=== PATIENT | male | born 1955 | race African-American/Black ===

== ENCOUNTER 2017-10-21 10:18 | Inpatient (IN) | payer OTHER ==
[2017-10-21 11:11] VITALS: BMI 32.8
--- NOTE | 2017-10-21 12:44 | HP ---
COWS - Scale Resting Pulse: 1= [place] 81-100 Sweatin=Flushed/Facial Moisture Restless Observation: 1= Difficult to Sit Still Pupil Size: 0= Normal to Room Light Bone or Joint Aches: 1= Mild Discomfort Runny Nose/ Eye Tearin= Nasal Congestion GI Upset > 30mins: 2= Nausea/Diarrhea Tremor Observation: 1= Tremor [place], Not Seen Yawning Observation: 1= 1-2x During Session Anxiety or Irritability: 2=Irritable/Anxious Goose Flesh Skin: 0=Smooth Skin COWS Score: 12 Admission ROS S - HPI Chief Complaint: Heroin withdrawal symptoms. "I am here to detox from heroin." Allergies/Adverse Reactions: Allergies Allergy/AdvReac Type Severity Reaction Status Date / Time No Known Allergies Allergy Verified 10/21/17 12:54 History of Present Illness: 62 yo male with hx heroin and nicotine dependence is here seeking detox for the first time. Currently smokes cigarettes on pack per day. Last detox 2 years ago at [facility]. PMHX: Rheumatoid arthritis, HTN, Hep C, anxiety and depression. Currently ambulates with crutches d/t pending right Hip and left knee replacement. Denies suicidal / homicidal ideation or suicide attempts. Longest period of sobriety 5 years. Exam Limitations: No Limitations - Ebola screening Have you traveled outside of the country in the last 21 days: No Have you had contact with anyone from an Ebola affected area: No Have you been sick,other than usual withdrawal symptoms: No - Review of Systems Constitutional: Loss of Appetite, Changes in sleep, Weakness EENT: reports: See HPI, Nose Congestion Respiratory: reports: Cough Cardiac: reports: No Symptoms Reported GI: reports: Constipated, Poor Appetite, Poor Fluid Intake : reports: No Symptoms Reported Musculoskeletal: reports: Joint Pain Integumentary: reports: No Symptoms Reported Neuro: reports: No Symptoms reported Endocrine: reports: No Symptoms Reported Hematology: reports: No Symptoms Reported Psychiatric: reports: Orientated x3, Agitated, Depressed Other Systems: Reviewed and Negative Patient History - Patient Medical History Hx Anemia: No Hx Asthma: No Hx Chronic Obstructive Pulmonary Disease (COPD): No Hx Cancer: No Hx Cardiac Disorders: No Hx Congestive Heart Failure: No Hx Hypertension: Yes (has not had medications in about 2 years ) Hx Hypercholesterolemia: No Hx Pacemaker: No HX Cerebrovascular Accident: No Hx Seizures: No Hx Dementia: No Hx Diabetes: No Hx Gastrointestinal Disorders: No Hx Liver Disease: Yes (Hep C ) Hx Genitourinary Disorders: No Hx Sexually Transmitted Disorders: Yes (Gonorrhea 25 years ago treated ) Hx Renal Disease (ESRD): No Hx Thyroid Disease: No Hx Human Immunodeficiency Virus (HIV): No (Last tested 3 years ago negative ) Hx Hepatitis C: Yes Hx Depression: Yes Hx Suicide Attempt: No Hx Bipolar Disorder: No Hx Schizophrenia: No Other Medical History: Rheumatoid Arthritis not on medications - Patient Surgical History Past Surgical History: Yes Hx Neurologic Surgery: No Hx Cataract Extraction: No Hx Cardiac Surgery: No Hx Lung Surgery: No Hx Breast Surgery: No Hx Breast Biopsy: No Hx Abdominal Surgery: No Hx Appendectomy: No Hx Cholecystectomy: No Hx Genitourinary Surgery: No Hx Orthopedic Surgery: Yes (Right replacement 20 years ago ) Anesthesia Reaction: No - PPD History Previous Implant?: Yes Documented Results: Negative w/proof PPD to be Administered?: Yes - Reproductive History Patient is a Female of Child Bearing Age (11 -55 yrs old): No - Smoking Cessation Smoking history: Current every day smoker Have you smoked in the past 12 months: Yes Hx Chewing Tobacco Use: No Initiated information on smoking cessation: Yes 'Breaking Loose' booklet given: 10/21/17 - Substance & Tx. History Hx Alcohol Use: No Hx Substance Use: Yes Substance Use Type: Heroin Hx Substance Use Treatment: Yes ([facility] 2 years ago ) - Substances Abused Heroin Route: Inhalation Frequency: Daily Amount used: 7 bags Age of first use: 22 Date of Last Use: 10/21/17 Family Disease History - Family Disease History Family Disease History: Heart Disease: Mother (, [place] ), Other: Father ( alive, HTN ), Mother Admission Physical Exam BHS - Vital Signs Vital Signs: Vital Signs - 24 hr 10/21/17 11:10 Temperature 98.6 F Pulse Rate 88 Respiratory 20 Rate Blood Pressure 157/117 - Physical General Appearance: Yes: No Apparent Distress, Disheveled, Irritable, Anxious, Other (malodorous) HEENTM: Yes: EOMI, Hearing grossly Normal, Normal ENT Inspection, Normocephalic , Normal Voice, ZITA, Pharynx Normal, Tm's normal, Other (poor dentation) Respiratory: Yes: Chest Non-Tender, Lungs Clear, Normal Breath Sounds, No Respiratory Distress, No Accessory Muscle Use Neck: Yes: Within Normal Limits, No masses,lesions,Nodules Breast: Yes: Breast Exam Deferred Cardiology: Yes: Regular Rhythm, Regular Rate Abdominal: Yes: Normal Bowel Sounds, Non Tender, Soft, Protuberent Genitourinary: Yes: Within Normal Limits Back: Yes: Normal Inspection Musculoskeletal: Yes: full range of Motion, Joint Stiffness, Other (joint deformity on the right middle finger, gait unsteady, ambulates with a crutch) Extremities: Yes: Normal Capillary Refill, Normal Range of Motion, Non-Tender, Pedal Edema Neurological: Yes: forecast analyst II-XII NML intact, Fully Oriented, Motor Strength 5/5, Normal Response, Depressed Affect Integumentary: Yes: Normal Color, Dry, Warm Lymphatic: Yes: Within Normal Limits - Addiitonal Findings: [employer]: Reference #: [id number]. No controlled substances prescribe. - Diagnostic (1) HTN (hypertension) Current Visit: Yes Status: Chronic Qualifiers: Hypertension type: essential hypertension Qualified Code(s): I10 - Essential (primary) hypertension (2) Rheumatoid arthritis Current Visit: Yes Status: Chronic Qualifiers: Rheumatoid arthritis location: multiple sites (3) Opioid dependence with withdrawal Current Visit: Yes Status: Acute (4) Chronic pain Current Visit: Yes Status: Chronic (5) Poor compliance with medication Current Visit: Yes Status: Chronic (6) Depressed affect Current Visit: Yes Status: Acute (7) Difficulty sleeping Current Visit: Yes Status: Acute (8) Crutches as ambulation aid Current Visit: Yes Status: Chronic (9) Nicotine dependence Current Visit: Yes Status: Chronic Qualifiers: Nicotine product type: cigarettes (10) Hepatitis C Current Visit: Yes Status: Chronic Qualifiers: Viral hepatitis chronicity: unspecified (11) Obese Current Visit: Yes Status: Chronic Qualifiers: Obesity classification: adult class 1 (BMI 30 - 34.9) Body mass index: BMI 32.0-32.9 Cleared for Admission [facility] - Detox or Rehab [facility] Level of Care: Medically Managed Detox Regimen/Protocol: Methadone [facility] Breath Alcohol Content Breath Alcohol Content: 0 Urine Drug Screen - Results Drug Screen Negative: No Urine Drug Screen Results: THC-Marijuana, OPI-Opiates, MTD-Methadone, OXY- Oxycodone
[2017-10-21] MEDS ORDERED: MENTHOL/PHENOL 1 EACH UD MM PRN (13:32)
[2017-10-21] MEDS ORDERED: MAG HYDROX/AL HYDROX/SIMETH 30 ML UNIT-DOSE CUP PO PRN (13:32)
[2017-10-21] MEDS ORDERED: MAGNESIUM HYDROX 2400MG/30ML ORAL SUSPENSION 30 ML CUP PO PRN (13:32)
[2017-10-21] MEDS ORDERED: IBUPROFEN 400 MG TABLET (FP) PO PRN (13:32)
[2017-10-21] MEDS ORDERED: P-EPHED 60MG/TRIPROLIDI 2.5MG TABLET PO PRN (13:32)
[2017-10-21] MEDS ORDERED: ACETAMINOPHEN 325 MG TABLET (FP) PO PRN (13:32)
[2017-10-21] MEDS ORDERED: LOPERAMIDE HCL 2 MG CAPSULE PO PRN (13:32)
[2017-10-21] MEDS ORDERED: MAGNESIUM CITRATE 300 ML BOTTLE PO PRN (13:32)
[2017-10-21] MEDS ORDERED: guaiFENesin/D-METHORPHAN HB 10 ML UNIT-DOSE CUPS PO PRN (13:32)
[2017-10-21] MEDS ORDERED: METHADONE HCL 10 MG TABLET (FOR DETOX USE ONLY) PO ONE ×2 (15:00→23:00)
[2017-10-21] MEDS: diazePAM 5 MG TABLET PO PRN ×2 (15:54→21:53)
[2017-10-21] MEDS: amLODIPine BESYLATE 10 MG TABLET (FP) PO SCH (15:54)
--- NOTE | 2017-10-21 17:30 | CONSULT ---
[facility] Psychiatric Consult - Data Date of interview: 10/21/17 Admission source: [facility] Identifying data: First admission to [facility] for this 62 y/o AA male seeking detox treatment on for heroin dependence.Patient is single,a father of seven,homeless,unemployed (disabled) and supported on SSI benefits. Substance Abuse History: Discussed with patient in this interview.Patient admits to current use of heroin (snorting an average of 7 bags/day).Long standing history of abuse (since age 22). Details in current [facility] report : Smoking history: Current every day smoker. Have you smoked in the past 12 months: Yes. Hx Chewing Tobacco Use: No. Initiated information on smoking cessation: Yes. 'Breaking Loose' booklet given: 10/21/17. - Substance & Tx. History. Hx Alcohol Use: No. Hx Substance Use: Yes. Substance Use Type: Heroin. Hx Substance Use Treatment: Yes ([facility] 2 years ago ). - Substances Abused. Heroin. Route: Inhalation. Frequency: Daily. Amount used: 7 bags. Age of first use: 22. Date of Last Use: 10/21/17 Medical History: Hypertension,hepatitis C,distant history of right hip replacement,rheumatoid arthritis and past treatment for gonorrhea. Psychiatric History: Patient denies. Physical/Sexual Abuse/Trauma History: Patient denies. Additional Comment: Urine Drug Screen Results: THC-Marijuana, OPI-Opiates, MTD- Methadone, OXY-Oxycodone.Noted. Mental Status Exam - Mental Status Exam Alert and Oriented to: Time, Place, Person Cognitive Function: Good Patient Appearance: Well Groomed (obese,moving around with crutches) Mood: Withdrawn, Anxious Affect: Mood Congruent Patient Behavior: Fatigued, Appropriate, Cooperative Speech Pattern: Clear, Appropriate Voice Loudness: Normal Thought Process: Intact, Goal Oriented Thought Disorder: Not Present Hallucinations: Denies Suicidal Ideation: Denies Homicidal Ideation: Denies Insight/Judgement: Poor Sleep: Fair Appetite: Good Gait/Station: Other (uses crutches for ambulation) Psychiatric Findings - Problem List ([place] 1, 2,3) (1) Opioid dependence with withdrawal Current Visit: Yes Status: Acute (2) Nicotine dependence Current Visit: Yes Status: Chronic Qualifiers: Nicotine product type: cigarettes - Initial Treatment Plan Initial Treatment Plan: Psychoeducation.Detoxification initiated.Sleep hygiene.Falls precautions.Observation.
[2017-10-21 18:59] LABS: URINE APPEARANCE CLEAR; URINE BILIRUBIN NEGATIVE (NEGATIVE); URINE BLOOD NEGATIVE (NEGATIVE); URINE COLOR YELLOW; URINE GLUCOSE (UA) NEGATIVE (NEGATIVE); URINE KETONE NEGATIVE (NEGATIVE); URINE LEUK ESTERASE NEGATIVE (NEGATIVE); URINE NITRITE NEGATIVE (NEGATIVE); URINE PROTEIN NEGATIVE (NEGATIVE)
[2017-10-21] MEDS: THIAMINE HCL 100 MG TABLET (FP) PO SCH (21:53)
[2017-10-22] MEDS ORDERED: METHADONE HCL 10 MG TABLET (FOR DETOX USE ONLY) PO ONE (10:00)
[2017-10-22 10:33] LABS: HEMATOCRIT 45.8 % (35.4-49); HEMOGLOBIN 15.6 GM/dL (11.7-16.9); MCH 30.5 pg (25.7-33.7); MCHC 34.2 g/dl (32.0-35.9); MEAN CELL VOLUME 89.2 fl (80-96); MEAN PLT VOLUME 8.5 fl (7.5-11.1); PLATELET COUNT 236 K/MM3 (134-434); RBC 5.13 M/mm3 (4.00-5.60); RDW 13.9 % (11.9-15.9); WHITE BLOOD COUNT 11.1 K/mm3 (4.0-10.0)
[2017-10-22] MEDS: diazePAM 5 MG TABLET PO PRN ×2 (10:37→22:26)
[2017-10-22] MEDS: amLODIPine BESYLATE 10 MG TABLET (FP) PO SCH (10:37)
[2017-10-22] MEDS: NICOTINE 14 MG/24 HOURS TOPICAL PATCH TD SCH (10:38)
[2017-10-22] MEDS: PRENATAL VITAMINS W/ FOLIC ACID TABLET (FP) PO SCH (10:38)
[2017-10-22 10:46] LABS: CHLORIDE 103 mmol/L (98-107); POTASSIUM 3.6 mmol/L (3.5-5.1); SODIUM 138 mmol/L (136-145)
[2017-10-22 11:05] LABS: ALBUMIN 3.7 g/dl (3.4-5.0); ALK PHOS 179 U/L (45-117); ANION GAP 9 (8-16); BILIRUBIN,TOTAL 0.8 mg/dL (0.2-1.0); BLOOD UREA NITROGEN 15 mg/dL (7-18); CALCIUM 8.3 mg/dL (8.5-10.1); CO2 26 mmol/L (21-32); CREATININE 1.2 mg/dL (0.7-1.3); GLUCOSE,RANDOM 134 mg/dL (74-106); SGOT/AST 36 U/L (15-37); SGPT/ALT 39 U/L (12-78); TOT PROT 8.5 g/dl (6.4-8.2)
[2017-10-22] MEDS ORDERED: FLU VACCINE QUAD 60 MCG/0.5 ML (MDV 17-18) IM ONE (12:00)
--- NOTE | 2017-10-22 18:06 | PN ---
BHS COWS - Scale Resting Pulse: 1= [place] 81-100 Sweatin= Chills/Flushing Restless Observation: 1= Difficult to Sit Still Pupil Size: 0= Normal to Room Light Bone or Joint Aches: 2= Severe Diffuse Aches Runny Nose/ Eye Tearin= Nasal Congestion GI Upset > 30mins: 0= None Tremor Observation of Outstretched Hands: 0= None Yawning Observation: 2= >3x During Session Anxiety or Irritability: 2=Irritable/Anxious Goose Flesh Skin: 3=Piloerection COWS Score: 13 BHS Progress Note (SOAP) Subjective: Fatigue, Sweating, Body Aches. Objective: PATIENT A & O X 3. NO ACUTE DISTRESS. 10/22/17 18:03 Vital Signs Temperature 98.6 F 10/22/17 18:02 Pulse Rate 85 10/22/17 18:02 Respiratory Rate 18 10/22/17 18:02 Blood Pressure 128/80 10/22/17 18:02 O2 Sat by Pulse Oximetry (%) Laboratory Tests 10/21/17 10/21/17 10/22/17 15:00 Unknown 06:00 WBC 11.1 H RBC 5.13 Hgb 15.6 Hct 45.8 MCV 89.2 MCH 30.5 MCHC 34.2 RDW 13.9 Plt Count 236 MPV 8.5 Sodium Potassium Chloride Carbon Dioxide Anion Gap BUN Creatinine Creat Clearance w eGFR Random Glucose Calcium Total Bilirubin AST ALT Alkaline Phosphatase Total Protein Albumin Urine Color Yellow Urine Appearance Clear Urine pH 5.0 Ur Specific [place] 1.015 Urine Protein Negative Urine Glucose (UA) Negative Urine Ketones Negative Urine Blood Negative Urine Nitrite Negative Urine Bilirubin Negative Urine Urobilinogen 2.0 Ur Leukocyte Esterase Negative RPR Titer HIV 1&2 Antibody Screen Negative HIV P24 Antigen Negative 10/22/17 10/22/17 06:00 06:00 WBC RBC Hgb Hct MCV MCH MCHC RDW Plt Count MPV Sodium 138 Potassium 3.6 Chloride 103 Carbon Dioxide 26 Anion Gap 9 BUN 15 Creatinine 1.2 Creat Clearance w eGFR > 60 Random Glucose 134 H Calcium 8.3 L Total Bilirubin 0.8 AST 36 ALT 39 Alkaline Phosphatase 179 H Total Protein 8.5 H Albumin 3.7 Urine Color Urine Appearance Urine pH Ur Specific [place] Urine Protein Urine Glucose (UA) Urine Ketones Urine Blood Urine Nitrite Urine Bilirubin Urine Urobilinogen Ur Leukocyte Esterase RPR Titer Nonreactive HIV 1&2 Antibody Screen HIV P24 Antigen LABS NOTED. Assessment: 10/22/17 18:04 WITHDRAWAL SYMPTOMS. Plan: CONTINUE DETOX. BGM ACBK FOR ELEVATED ADMISSION RANDOM GLUCOSE LEVEL. INCREASE DAILY PO FLUID INTAKE.
[2017-10-22] MEDS: THIAMINE HCL 100 MG TABLET (FP) PO SCH (22:26)
[2017-10-22] MEDS: cloNIDine HCL 0.1 MG TABLET PO PRN (22:27)
[2017-10-23] MEDS: hydrOXYzine PAMOATE 50 MG CAPSULE (FP) PO PRN ×2 (01:17→22:22)
[2017-10-23] MEDS ORDERED: METHADONE HCL 5 MG TABLET (FOR DETOX USE ONLY) PO ONE (10:00)
[2017-10-23] MEDS: PRENATAL VITAMINS W/ FOLIC ACID TABLET (FP) PO SCH (10:24)
[2017-10-23] MEDS: amLODIPine BESYLATE 10 MG TABLET (FP) PO SCH (10:24)
[2017-10-23] MEDS: diazePAM 5 MG TABLET PO PRN ×2 (10:24→22:21)
[2017-10-23] MEDS: NICOTINE 14 MG/24 HOURS TOPICAL PATCH TD SCH (10:25)
--- NOTE | 2017-10-23 16:35 | PN ---
BHS COWS - Scale Resting Pulse: 0= TN 80 or Below Sweatin= Chills/Flushing Restless Observation: 3= Extraneous Movement Pupil Size: 0= Normal to Room Light Bone or Joint Aches: 2= Severe Diffuse Aches Runny Nose/ Eye Tearin= Runny Nose/Eyes GI Upset > 30mins: 2= Nausea/Diarrhea Tremor Observation of Outstretched Hands: 2= Slight Tremor Visible Yawning Observation: 0= None Anxiety or Irritability: 2=Irritable/Anxious Goose Flesh Skin: 0=Smooth Skin COWS Score: 14 BHS Progress Note (SOAP) Subjective: Sweating, chills, tremor, nausea, interrupted sleep Objective: 10/23/17 16:32 Last Vital Signs Temp Pulse Resp BP Pulse Ox 97 F L 63 18 154/91 10/23/17 14:22 10/23/17 14:22 10/23/17 14:22 10/23/17 14:22 Laboratory Tests 10/21/17 10/21/17 10/22/17 15:00 Unknown 06:00 WBC 11.1 H RBC 5.13 Hgb 15.6 Hct 45.8 MCV 89.2 MCH 30.5 MCHC 34.2 RDW 13.9 Plt Count 236 MPV 8.5 Sodium Potassium Chloride Carbon Dioxide Anion Gap BUN Creatinine Creat Clearance w eGFR POC Glucometer Random Glucose Calcium Total Bilirubin AST ALT Alkaline Phosphatase Total Protein Albumin Urine Color Yellow Urine Appearance Clear Urine pH 5.0 Ur Specific [place] 1.015 Urine Protein Negative Urine Glucose (UA) Negative Urine Ketones Negative Urine Blood Negative Urine Nitrite Negative Urine Bilirubin Negative Urine Urobilinogen 2.0 Ur Leukocyte Esterase Negative RPR Titer HIV 1&2 Antibody Screen Negative HIV P24 Antigen Negative 10/22/17 10/22/17 10/23/17 06:00 06:00 07:30 WBC RBC Hgb Hct MCV MCH MCHC RDW Plt Count MPV Sodium 138 Potassium 3.6 Chloride 103 Carbon Dioxide 26 Anion Gap 9 BUN 15 Creatinine 1.2 Creat Clearance w eGFR > 60 POC Glucometer 195 Random Glucose 134 H Calcium 8.3 L Total Bilirubin 0.8 AST 36 ALT 39 Alkaline Phosphatase 179 H Total Protein 8.5 H Albumin 3.7 Urine Color Urine Appearance Urine pH Ur Specific [place] Urine Protein Urine Glucose (UA) Urine Ketones Urine Blood Urine Nitrite Urine Bilirubin Urine Urobilinogen Ur Leukocyte Esterase RPR Titer Nonreactive HIV 1&2 Antibody Screen HIV P24 Antigen Labs noted: wbc 11.1 Assessment: 10/23/17 16:33 Withdrawal symptoms Noted with leukocytosis Plan: Withdrawal symptoms Encouraged PO hydration (water) Leukocytosis: asymptomatic, repeat CBC
--- NOTE | 2017-10-23 20:38 | EKG ---
Test Reason : Blood Pressure : / mmHG Vent. Rate : 078 BPM Atrial Rate : 078 BPM P-R Int : 172 ms QRS Dur : 090 ms QT Int : 408 ms P-R-T Axes : 061 081 051 degrees QTc Int : 465 ms NORMAL SINUS RHYTHM POSSIBLE LEFT ATRIAL ENLARGEMENT BORDERLINE ECG NO PREVIOUS ECGS AVAILABLE Confirmed by ALANA COSTELLO, EMMANUELLE ([id number]) on 10/23/2017 8:38:42 PM Referred By: Confirmed By:EMMANUELLE WARNER MD
[2017-10-23] MEDS: THIAMINE HCL 100 MG TABLET (FP) PO SCH (22:21)
[2017-10-23] MEDS: cloNIDine HCL 0.1 MG TABLET PO PRN (22:21)
[2017-10-24] MEDS: diazePAM 5 MG TABLET PO PRN ×2 (06:12→10:42)
[2017-10-24] MEDS ORDERED: METHADONE HCL 5 MG TABLET (FOR DETOX USE ONLY) PO ONE (10:00)
[2017-10-24] MEDS: PRENATAL VITAMINS W/ FOLIC ACID TABLET (FP) PO SCH (10:42)
[2017-10-24] MEDS: NICOTINE 14 MG/24 HOURS TOPICAL PATCH TD SCH (10:42)
[2017-10-24] MEDS: amLODIPine BESYLATE 10 MG TABLET (FP) PO SCH (10:42)
[2017-10-24] MEDS: NICOTINE POLACRILEX 2 MG GUM BUC PRN (10:43)
--- NOTE | 2017-10-24 11:50 | PN ---
BHS Progress Note (SOAP) Subjective: PT STATES HE TAKES TRAZODONE AND AMBIEN NOT EFFECTIVE. Objective: 10/24/17 12:04 Vital Signs Temperature 97.1 F L 10/24/17 06:47 Pulse Rate 57 L 10/24/17 06:47 Respiratory Rate 18 10/24/17 06:47 Blood Pressure 143/89 10/24/17 06:47 O2 Sat by Pulse Oximetry (%) Laboratory Last Values WBC 11.1 K/mm3 (4.0-10.0) H 10/22/17 06:00 RBC 5.13 M/mm3 (4.00-5.60) 10/22/17 06:00 Hgb 15.6 GM/dL (11.7-16.9) 10/22/17 06:00 Hct 45.8 % (35.4-49) 10/22/17 06:00 MCV 89.2 fl (80-96) 10/22/17 06:00 MCH 30.5 pg (25.7-33.7) 10/22/17 06:00 MCHC 34.2 g/dl (32.0-35.9) 10/22/17 06:00 RDW 13.9 % (11.9-15.9) 10/22/17 06:00 Plt Count 236 K/MM3 (134-434) 10/22/17 06:00 MPV 8.5 fl (7.5-11.1) 10/22/17 06:00 Sodium 138 mmol/L (136-145) 10/22/17 06:00 Potassium 3.6 mmol/L (3.5-5.1) 10/22/17 06:00 Chloride 103 mmol/L (98-107) 10/22/17 06:00 Carbon Dioxide 26 mmol/L (21-32) 10/22/17 06:00 Anion Gap 9 (8-16) 10/22/17 06:00 BUN 15 mg/dL (7-18) 10/22/17 06:00 Creatinine 1.2 mg/dL (0.7-1.3) 10/22/17 06:00 Creat Clearance w eGFR > 60 (>60) 10/22/17 06:00 POC Glucometer 126 UNITS (80-120) 10/24/17 06:12 Random Glucose 134 mg/dL (74-106) H 10/22/17 06:00 Calcium 8.3 mg/dL (8.5-10.1) L 10/22/17 06:00 Total Bilirubin 0.8 mg/dL (0.2-1.0) 10/22/17 06:00 AST 36 U/L (15-37) 10/22/17 06:00 ALT 39 U/L (12-78) 10/22/17 06:00 Alkaline Phosphatase 179 U/L (45-117) H 10/22/17 06:00 Total Protein 8.5 g/dl (6.4-8.2) H 10/22/17 06:00 Albumin 3.7 g/dl (3.4-5.0) 10/22/17 06:00 Urine Color Yellow 10/21/17 Unknown Urine Appearance Clear 10/21/17 Unknown Urine pH 5.0 (5.0-8.0) 10/21/17 Unknown Ur Specific [place] 1.015 (1.001-1.035) 10/21/17 Unknown Urine Protein Negative (NEGATIVE) 10/21/17 Unknown Urine Glucose (UA) Negative (NEGATIVE) 10/21/17 Unknown Urine Ketones Negative (NEGATIVE) 10/21/17 Unknown Urine Blood Negative (NEGATIVE) 10/21/17 Unknown Urine Nitrite Negative (NEGATIVE) 10/21/17 Unknown Urine Bilirubin Negative (NEGATIVE) 10/21/17 Unknown Urine Urobilinogen 2.0 mg/dL (0.2-1.0) 10/21/17 Unknown Ur Leukocyte Esterase Negative (NEGATIVE) 10/21/17 Unknown RPR Titer Nonreactive (NONREACTIVE) 10/22/17 06:00 HIV 1&2 Antibody Screen Negative 10/21/17 15:00 HIV P24 Antigen Negative 10/21/17 15:00 Assessment: 10/24/17 12:04 WITHDRAWAL SX HX INSOMNIA Plan: CONTINUE WITH DETOX FOLLOW UP WITH PSYCH FOR INSOMNIA WORK UP.
[2017-10-24] MEDS: THIAMINE HCL 100 MG TABLET (FP) PO SCH (22:09)
[2017-10-24] MEDS: cloNIDine HCL 0.1 MG TABLET PO SCH (22:09)
[2017-10-24] MEDS: hydrOXYzine PAMOATE 50 MG CAPSULE (FP) PO PRN (22:11)
[2017-10-25] MEDS ORDERED: METHADONE HCL 10 MG TABLET (FOR DETOX USE ONLY) PO ONE (10:00)
[2017-10-25] MEDS: cloNIDine HCL 0.1 MG TABLET PO SCH ×2 (10:25→22:07)
[2017-10-25] MEDS: PRENATAL VITAMINS W/ FOLIC ACID TABLET (FP) PO SCH (10:25)
[2017-10-25] MEDS: NICOTINE 14 MG/24 HOURS TOPICAL PATCH TD SCH (10:25)
[2017-10-25] MEDS: amLODIPine BESYLATE 10 MG TABLET (FP) PO SCH (10:25)
--- NOTE | 2017-10-25 11:29 | PN ---
BHS Progress Note (SOAP) Subjective: SLIGHT ANXIETY,SWEATS. OOB ON HALLWAYS AMBULATING WITH CANE. DETOX PROTOCOL TOLERATING WELL Objective: 10/25/17 11:31 Vital Signs Temperature 97.5 F L 10/25/17 10:19 Pulse Rate 68 10/25/17 10:19 Respiratory Rate 18 10/25/17 10:19 Blood Pressure 138/82 10/25/17 10:19 O2 Sat by Pulse Oximetry (%) Laboratory Last Values WBC 11.1 K/mm3 (4.0-10.0) H 10/22/17 06:00 RBC 5.13 M/mm3 (4.00-5.60) 10/22/17 06:00 Hgb 15.6 GM/dL (11.7-16.9) 10/22/17 06:00 Hct 45.8 % (35.4-49) 10/22/17 06:00 MCV 89.2 fl (80-96) 10/22/17 06:00 MCH 30.5 pg (25.7-33.7) 10/22/17 06:00 MCHC 34.2 g/dl (32.0-35.9) 10/22/17 06:00 RDW 13.9 % (11.9-15.9) 10/22/17 06:00 Plt Count 236 K/MM3 (134-434) 10/22/17 06:00 MPV 8.5 fl (7.5-11.1) 10/22/17 06:00 Sodium 138 mmol/L (136-145) 10/22/17 06:00 Potassium 3.6 mmol/L (3.5-5.1) 10/22/17 06:00 Chloride 103 mmol/L (98-107) 10/22/17 06:00 Carbon Dioxide 26 mmol/L (21-32) 10/22/17 06:00 Anion Gap 9 (8-16) 10/22/17 06:00 BUN 15 mg/dL (7-18) 10/22/17 06:00 Creatinine 1.2 mg/dL (0.7-1.3) 10/22/17 06:00 Creat Clearance w eGFR > 60 (>60) 10/22/17 06:00 POC Glucometer 109 UNITS (80-120) 10/25/17 06:39 Random Glucose 134 mg/dL (74-106) H 10/22/17 06:00 Calcium 8.3 mg/dL (8.5-10.1) L 10/22/17 06:00 Total Bilirubin 0.8 mg/dL (0.2-1.0) 10/22/17 06:00 AST 36 U/L (15-37) 10/22/17 06:00 ALT 39 U/L (12-78) 10/22/17 06:00 Alkaline Phosphatase 179 U/L (45-117) H 10/22/17 06:00 Total Protein 8.5 g/dl (6.4-8.2) H 10/22/17 06:00 Albumin 3.7 g/dl (3.4-5.0) 10/22/17 06:00 Urine Color Yellow 10/21/17 Unknown Urine Appearance Clear 10/21/17 Unknown Urine pH 5.0 (5.0-8.0) 10/21/17 Unknown Ur Specific [place] 1.015 (1.001-1.035) 10/21/17 Unknown Urine Protein Negative (NEGATIVE) 10/21/17 Unknown Urine Glucose (UA) Negative (NEGATIVE) 10/21/17 Unknown Urine Ketones Negative (NEGATIVE) 10/21/17 Unknown Urine Blood Negative (NEGATIVE) 10/21/17 Unknown Urine Nitrite Negative (NEGATIVE) 10/21/17 Unknown Urine Bilirubin Negative (NEGATIVE) 10/21/17 Unknown Urine Urobilinogen 2.0 mg/dL (0.2-1.0) 10/21/17 Unknown Ur Leukocyte Esterase Negative (NEGATIVE) 10/21/17 Unknown RPR Titer Nonreactive (NONREACTIVE) 10/22/17 06:00 HIV 1&2 Antibody Screen Negative 10/21/17 15:00 HIV P24 Antigen Negative 10/21/17 15:00 Assessment: 10/25/17 11:31 WITHDRAWAL SX Plan: CONTINUE DETOX
[2017-10-25] MEDS: THIAMINE HCL 100 MG TABLET (FP) PO SCH (22:07)
[2017-10-25] MEDS: hydrOXYzine PAMOATE 50 MG CAPSULE (FP) PO PRN (22:09)
[2017-10-26] MEDS ORDERED: METHADONE HCL 5 MG TABLET (FOR DETOX USE ONLY) PO ONE (06:00)
[2017-10-26] MEDS: NICOTINE POLACRILEX 2 MG GUM BUC PRN ×2 (06:38→10:50)
[2017-10-26] MEDS: amLODIPine BESYLATE 10 MG TABLET (FP) PO SCH (10:48)
[2017-10-26] MEDS: PRENATAL VITAMINS W/ FOLIC ACID TABLET (FP) PO SCH (10:48)
[2017-10-26] MEDS: cloNIDine HCL 0.1 MG TABLET PO SCH (10:48)
[2017-10-26] MEDS: NICOTINE 14 MG/24 HOURS TOPICAL PATCH TD SCH (10:49)
[2017-10-26 10:53] VITALS: BP 166/89; PULSE 66; TEMP 97.2
--- NOTE | 2017-10-26 11:01 | PN ---
S Progress Note (SOAP) Subjective: Patient reports that he is doing well and denies any current Detox symptoms. Objective: PATIENT A & O X 3, OBSERVED AMBULATING ON UNIT WITH ASSISTANCE OF A CRUTCH. 10/26/17 10:59 Vital Signs Temperature 97.2 F L 10/26/17 10:52 Pulse Rate 66 10/26/17 10:52 Respiratory Rate 18 10/26/17 10:52 Blood Pressure 166/89 10/26/17 10:52 O2 Sat by Pulse Oximetry (%) Laboratory Tests 10/21/17 10/21/17 10/22/17 15:00 Unknown 06:00 WBC 11.1 H RBC 5.13 Hgb 15.6 Hct 45.8 MCV 89.2 MCH 30.5 MCHC 34.2 RDW 13.9 Plt Count 236 MPV 8.5 Sodium Potassium Chloride Carbon Dioxide Anion Gap BUN Creatinine Creat Clearance w eGFR POC Glucometer Random Glucose Calcium Total Bilirubin AST ALT Alkaline Phosphatase Total Protein Albumin Urine Color Yellow Urine Appearance Clear Urine pH 5.0 Ur Specific [place] 1.015 Urine Protein Negative Urine Glucose (UA) Negative Urine Ketones Negative Urine Blood Negative Urine Nitrite Negative Urine Bilirubin Negative Urine Urobilinogen 2.0 Ur Leukocyte Esterase Negative RPR Titer HIV 1&2 Antibody Screen Negative HIV P24 Antigen Negative 10/22/17 10/22/17 10/23/17 06:00 06:00 07:30 WBC RBC Hgb Hct MCV MCH MCHC RDW Plt Count MPV Sodium 138 Potassium 3.6 Chloride 103 Carbon Dioxide 26 Anion Gap 9 BUN 15 Creatinine 1.2 Creat Clearance w eGFR > 60 POC Glucometer 195 Random Glucose 134 H Calcium 8.3 L Total Bilirubin 0.8 AST 36 ALT 39 Alkaline Phosphatase 179 H Total Protein 8.5 H Albumin 3.7 Urine Color Urine Appearance Urine pH Ur Specific [place] Urine Protein Urine Glucose (UA) Urine Ketones Urine Blood Urine Nitrite Urine Bilirubin Urine Urobilinogen Ur Leukocyte Esterase RPR Titer Nonreactive HIV 1&2 Antibody Screen HIV P24 Antigen 10/24/17 10/25/17 10/26/17 06:12 06:39 06:28 WBC RBC Hgb Hct MCV MCH MCHC RDW Plt Count MPV Sodium Potassium Chloride Carbon Dioxide Anion Gap BUN Creatinine Creat Clearance w eGFR POC Glucometer 126 109 106 Random Glucose Calcium Total Bilirubin AST ALT Alkaline Phosphatase Total Protein Albumin Urine Color Urine Appearance Urine pH Ur Specific [place] Urine Protein Urine Glucose (UA) Urine Ketones Urine Blood Urine Nitrite Urine Bilirubin Urine Urobilinogen Ur Leukocyte Esterase RPR Titer HIV 1&2 Antibody Screen HIV P24 Antigen LABS NOTED. Assessment: 10/26/17 11:00 COMPLETION OF DETOX REGIMEN. Plan: PATIENT SCHEDULED FOR DISCHARGE TODAY. [facility]
--- NOTE | 2017-10-26 11:05 | DS ---
[facility] Detox Discharge Summary Admission Date: 10/21/17 Discharge Date: 10/26/17 - History Present History: Opioid Dependence Additional Comments: [facility] PATIENT WAS DISCHARGE FROM DETOX UNIT IN STABLE MEDICAL CONDITION. Pertinent Past History: Hep C, Depresssion, Nicotine Dependence, HTN, Use of Crutch as Ambulatory Aid, Chronic Pain, Rheumatoid Arthritis. - Physical Exam Results Vital Signs: Vital Signs Temperature 97.2 F L 10/26/17 10:52 Pulse Rate 66 10/26/17 10:52 Respiratory Rate 18 10/26/17 10:52 Blood Pressure 166/89 10/26/17 10:52 O2 Sat by Pulse Oximetry (%) Pertinent Admission Physical Exam Findings: WITHDRAWAL SYMPTOMS. Laboratory Tests 10/21/17 10/21/17 10/22/17 15:00 Unknown 06:00 WBC 11.1 H RBC 5.13 Hgb 15.6 Hct 45.8 MCV 89.2 MCH 30.5 MCHC 34.2 RDW 13.9 Plt Count 236 MPV 8.5 Sodium Potassium Chloride Carbon Dioxide Anion Gap BUN Creatinine Creat Clearance w eGFR POC Glucometer Random Glucose Calcium Total Bilirubin AST ALT Alkaline Phosphatase Total Protein Albumin Urine Color Yellow Urine Appearance Clear Urine pH 5.0 Ur Specific Mangham 1.015 Urine Protein Negative Urine Glucose (UA) Negative Urine Ketones Negative Urine Blood Negative Urine Nitrite Negative Urine Bilirubin Negative Urine Urobilinogen 2.0 Ur Leukocyte Esterase Negative RPR Titer HIV 1&2 Antibody Screen Negative HIV P24 Antigen Negative 10/22/17 10/22/17 10/23/17 06:00 06:00 07:30 WBC RBC Hgb Hct MCV MCH MCHC RDW Plt Count MPV Sodium 138 Potassium 3.6 Chloride 103 Carbon Dioxide 26 Anion Gap 9 BUN 15 Creatinine 1.2 Creat Clearance w eGFR > 60 POC Glucometer 195 Random Glucose 134 H Calcium 8.3 L Total Bilirubin 0.8 AST 36 ALT 39 Alkaline Phosphatase 179 H Total Protein 8.5 H Albumin 3.7 Urine Color Urine Appearance Urine pH Ur Specific Mangham Urine Protein Urine Glucose (UA) Urine Ketones Urine Blood Urine Nitrite Urine Bilirubin Urine Urobilinogen Ur Leukocyte Esterase RPR Titer Nonreactive HIV 1&2 Antibody Screen HIV P24 Antigen 10/24/17 10/25/17 10/26/17 06:12 06:39 06:28 WBC RBC Hgb Hct MCV MCH MCHC RDW Plt Count MPV Sodium Potassium Chloride Carbon Dioxide Anion Gap BUN Creatinine Creat Clearance w eGFR POC Glucometer 126 109 106 Random Glucose Calcium Total Bilirubin AST ALT Alkaline Phosphatase Total Protein Albumin Urine Color Urine Appearance Urine pH Ur Specific Mangham Urine Protein Urine Glucose (UA) Urine Ketones Urine Blood Urine Nitrite Urine Bilirubin Urine Urobilinogen Ur Leukocyte Esterase RPR Titer HIV 1&2 Antibody Screen HIV P24 Antigen LABS NOTED. - Treatment Hospital Course: Detox Protocol Followed, Detoxed Safely, Responded well, Discharged Condition Good, Rehab Referral Accepted Patient has Accepted a Rehab Referral to: [facility] ([facility] . - Medication Discharge Medications: Ambulatory Orders NK [No Known Home Medication] 10/21/17 - Diagnosis (1) Difficulty sleeping Current Visit: Yes Status: Acute (2) Opioid dependence with withdrawal Current Visit: Yes Status: Acute (3) Crutches as ambulation aid Current Visit: Yes Status: Chronic (4) HTN (hypertension) Current Visit: Yes Status: Chronic Qualifiers: Hypertension type: essential hypertension Qualified Code(s): I10 - Essential (primary) hypertension (5) Hepatitis C Current Visit: Yes Status: Chronic Qualifiers: Viral hepatitis chronicity: unspecified Hepatic coma status: without hepatic coma Qualified Code(s): B19.20 - Unspecified viral hepatitis C without hepatic coma (6) Nicotine dependence Current Visit: Yes Status: Chronic Qualifiers: Nicotine product type: cigarettes Substance use status: uncomplicated Qualified Code(s): F17.210 - Nicotine dependence, cigarettes, uncomplicated (7) Obese Current Visit: Yes Status: Chronic Qualifiers: Obesity type: unspecified obesity type Obesity classification: adult class 1 (BMI 30 - 34.9) Serious obesity comorbidity presence: unspecified whether serious comorbidity present Body mass index: BMI 32.0-32.9 Qualified Code(s) : E66.9 - Obesity, unspecified; Z68.32 - Body mass index (BMI) 32.0-32.9, adult ; Z68.32 - Body mass index (BMI) 32.0-32.9, adult (8) Depressed affect Current Visit: Yes Status: Acute (9) Poor compliance with medication Current Visit: Yes Status: Chronic (10) Rheumatoid arthritis Current Visit: Yes Status: Chronic Qualifiers: Rheumatoid arthritis location: multiple sites Rheumatoid factor presence: unspecified presence Qualified Code(s): M06.9 - Rheumatoid arthritis, unspecified (11) Chronic pain Current Visit: Yes Status: Chronic Qualifiers: Chronic pain type: other chronic pain Qualified Code(s): G89.29 - Other chronic pain - AMA Did Patient Leave Against Medical Advice: No
== END 2017-10-26 12:07 | disposition other institution (70) | DRG 773 ==
LOC: YASAS 10:18 → Y3N 14:49
PROVIDERS: ADMIT Internal Medicine; ATTEND Internal Medicine
PROC: HZ2ZZZZ Detoxification Services for Substance Abuse Treatment (ICD-10-PCS; principal; 2017-10-21)
DX: F11.23 Opioid dependence with withdrawal (principal); F17.210 Nicotine dependence, cigarettes, uncomplicated; F32.9 Major depressive disorder, single episode, unspecified; I10 Essential (primary) hypertension; G47.00 Insomnia, unspecified; M06.9 Rheumatoid arthritis, unspecified; G89.29 Other chronic pain; E66.9 Obesity, unspecified; R26.2 Difficulty in walking, not elsewhere classified; Z68.32 Body mass index [BMI] 32.0-32.9, adult; Z99.89 Dependence on other enabling machines and devices; Z91.14 Patient's other noncompliance with medication regimen; Z96.641 Presence of right artificial hip joint; Z87.438 Personal history of other diseases of male genital organs
CPT/HCPCS: 36415; 80053; 81003; 82962; 85027; 86593; 87389; 90688; 93005; 93010; J0735

== ENCOUNTER 2017-10-26 12:32 | Inpatient (IN) | payer OTHER ==
--- NOTE | 2017-10-26 11:14 | HP ---
[facility] Rehab Assess/Revision - Admission History Admitted to Rehab from: [facility] Date of Admission to Rehab: 10/26/2017 - Vital signs Vital Signs: NOTED; STABLE. - Findings Detox History & Physical reviewed: Yes Concur with findings: Yes Comments/Additional Findings: PATIENT'S MEDICAL / MEDICATION HISTORY REVIEWED PRIOR TO DISCHARGE FROM DETOX UNIT. PATIENT WAS DISCHARGED FROM DETOX UNIT TO BE TAKEN TO REHAB UNIT IN STABLE MEDICAL CONDITION. Inpatient Rehab Admission - Initial Determination Are CD services needed?: Yes Free of communicable disease: Yes Not in need of hospitalization: Yes - Rehab Admission Criteria Poor recovery environment: Yes Comorbidities: Yes Patient is meeting Inpatient Rehab admission criteria:: Yes
[~2017-10-26 12:32] MED LIST: IBUPROFEN 400 MG TABLET (FP) PO PRN; LOPERAMIDE HCL 2 MG CAPSULE PO PRN; MAG HYDROX/AL HYDROX/SIMETH 30 ML UNIT-DOSE CUP PO PRN; MAGNESIUM CITRATE 300 ML BOTTLE PO PRN; MAGNESIUM HYDROX 2400MG/30ML ORAL SUSPENSION 30 ML CUP PO PRN; MENTHOL/PHENOL 1 EACH UD MM PRN; P-EPHED 60MG/TRIPROLIDI 2.5MG TABLET PO PRN; guaiFENesin/D-METHORPHAN HB 10 ML UNIT-DOSE CUPS PO PRN
[2017-10-26 14:05] VITALS: BMI 32.9
[2017-10-26] MEDS: ACETAMINOPHEN 325 MG TABLET (FP) PO PRN (21:20)
[2017-10-26] MEDS: THIAMINE HCL 100 MG TABLET (FP) PO SCH (21:20)
[2017-10-27] MEDS: ACETAMINOPHEN 325 MG TABLET (FP) PO PRN (06:06)
--- NOTE | 2017-10-27 06:26 | HP ---
Psychiatrist Admission - Data Date of interview: 10/27/17 Admission source: 3N Identifying data: This is the first inpatient Rehabilitation admission for this 62 years old single Black male, father of 7 children, unemployed on SSI, homeless Medical History: Significant for hypertension, hepatitis C, rheumatoid arthritis and history of treatment for gonorrhea and orthosurgery for right hip replacement 20 years ago. Smokes 10-20 cigarettes daily Psychiatric History: Reports that approximately 3-4 years ago while in rehab at [facility], he saw a psychiatrist for anxiety and was prescribed Zoloft. He states that he only took it once and stopped after seeing tv ad linking that medication with suicide. Denies previous psychiatric hospitalization or suicidal asttempt Physical/Sexual Abuse/Trauma History: Denies history of emotional, physical or sexual abuse as DV relationship. No service Additional Comment: Denies criminal history Vital Signs: Vital Signs - 24 hr 10/26/17 10/27/17 13:46 00:30 Temperature 98.3 F Pulse Rate 74 Respiratory 20 18 Rate Blood Pressure 120/73 Allergies/Adverse Reactions: Allergies Allergy/AdvReac Type Severity Reaction Status Date / Time No Known Allergies Allergy Verified 10/21/17 12:54 Date of last physical exam: 10/21/17 Concur with the findings of this exam: Yes - Substance Abuse/Tx History Hx Alcohol Use: No Hx Substance Use: Yes Substance Use Type: Heroin (Started using heroin at age 22, consumes 7 bags daily. Last used on 10/21/17) Hx Substance Use Treatment: Yes (4 previous inpt detox and 2 ouptrehab. First inpt rehab) Mental Status Exam - Mental Status Exam Alert and Oriented to: Time, Place, Person Cognitive Function: Fair Patient Appearance: Well Groomed Mood: Anxious Affect: Normal Range Patient Behavior: Cooperative Speech Pattern: Clear Voice Loudness: Normal Thought Process: Intact, Goal Oriented Thought Disorder: Not Present Hallucinations: Denies Suicidal Ideation: Denies Homicidal Ideation: Denies Insight/Judgement: Fair Sleep: Poorly Appetite: Fair Muscle strength/Tone: Normal Gait/Station: Antalgic (uses crutches as ambulatory aid) Psychiatric Findings - Problem List (Mosinee 1, 2,3) (1) Opioid dependence Current Visit: Yes Status: Acute (2) Nicotine dependence Current Visit: No Status: Chronic Qualifiers: Nicotine product type: cigarettes Substance use status: uncomplicated Qualified Code(s): F17.210 - Nicotine dependence, cigarettes, uncomplicated (3) Substance-induced anxiety disorder Current Visit: Yes Status: Acute (4) Substance-induced sleep disorder Current Visit: Yes Status: Acute (5) Chronic pain Current Visit: No Status: Chronic Qualifiers: Chronic pain type: other chronic pain Qualified Code(s): G89.29 - Other chronic pain (6) HTN (hypertension) Current Visit: No Status: Chronic Qualifiers: Hypertension type: essential hypertension Qualified Code(s): I10 - Essential (primary) hypertension (7) Hepatitis C Current Visit: No Status: Chronic Qualifiers: Viral hepatitis chronicity: unspecified Hepatic coma status: without hepatic coma Qualified Code(s): B19.20 - Unspecified viral hepatitis C without hepatic coma (8) Rheumatoid arthritis Current Visit: No Status: Chronic Qualifiers: Rheumatoid arthritis location: multiple sites Rheumatoid factor presence: unspecified presence Qualified Code(s): M06.9 - Rheumatoid arthritis, unspecified - Initial Treatment Plan Initial Treatment Plan: 1) Start Belsomra 10 mg po HS prn for insomnia and Vistaril 50 mg po Q 4hr prn for anxiety. 2) Monitor progress
[2017-10-27] MEDS: NICOTINE 14 MG/24 HOURS TOPICAL PATCH TD SCH (10:31)
[2017-10-27] MEDS: amLODIPine BESYLATE 10 MG TABLET (FP) PO SCH (10:31)
[2017-10-27] MEDS: PRENATAL VITAMINS W/ FOLIC ACID TABLET (FP) PO SCH (10:31)
--- NOTE | 2017-10-27 16:15 | PN ---
Juan Alberto Progress Note Note: Patient c/o back pain radiating down to left lower extremity, pain on both knees. Continue to ambulate with crutch for support. Reports he is schedule to follow up with electronic publications specialist on 11/28/17 at [facility] for further evaluation. Vital Signs Temperature 98 F 10/27/17 06:55 Pulse Rate 83 10/27/17 09:25 Respiratory Rate 18 10/27/17 06:55 Blood Pressure 161/80 10/27/17 09:25 O2 Sat by Pulse Oximetry (%) ROS: Constitutional : negative Cardiac : Negative Skin : Negative Musculoskeletal: + back pain radiating down the left lower extremity and knee pain neuro: negative Patient AOx 3 self directing in no apparent distress Normal HR and Rhythm, No adventcious lung sounds Musculoskeletal: + back pain, gain abnormality, joint deformity on the right middle finger Neuro: negative Plan: Increase fluids Continue to ambulate Tizanidine 2mg TID PRN Lidocaine patch Naproxen 375mg BID continue to monitor Patient advised on the importance to follow up with ortho appt upon discharge
[2017-10-27] MEDS: LIDOCAINE 5% TOPICAL PATCH TP SCH (18:08)
[2017-10-27] MEDS: NAPROXEN 375 MG TABLET (FP) PO SCH (21:58)
[2017-10-27] MEDS: THIAMINE HCL 100 MG TABLET (FP) PO SCH (21:58)
[2017-10-27] MEDS: LIDOCAINE PATCH REMOVAL MC SCH (21:59)
[2017-10-27] MEDS ORDERED: SUVOREXANT 10 MG TABLET PO PRN (22:00)
[2017-10-27] MEDS: NICOTINE POLACRILEX 2 MG GUM BUC PRN (22:01)
[2017-10-28] MEDS ORDERED: PNEUMOC 13-VAL CONJ-DIP CRM/PF 0.5 ML DISP.SYRIN IM ONE (10:28)
[2017-10-28] MEDS: NAPROXEN 375 MG TABLET (FP) PO SCH ×2 (10:38→21:29)
[2017-10-28] MEDS: PRENATAL VITAMINS W/ FOLIC ACID TABLET (FP) PO SCH (10:39)
[2017-10-28] MEDS: NICOTINE 14 MG/24 HOURS TOPICAL PATCH TD SCH (10:39)
[2017-10-28] MEDS: amLODIPine BESYLATE 10 MG TABLET (FP) PO SCH (10:39)
[2017-10-28] MEDS: LIDOCAINE 5% TOPICAL PATCH TP SCH (10:40)
[2017-10-28] MEDS ORDERED: PNEUMOCOCCAL 23 VACCINE 0.5 ML VIAL IM ONE (12:00)
[2017-10-28] MEDS: THIAMINE HCL 100 MG TABLET (FP) PO SCH (21:28)
[2017-10-28] MEDS: SUVOREXANT 10 MG TABLET PO PRN (21:29)
[2017-10-28] MEDS: LIDOCAINE PATCH REMOVAL MC SCH (21:30)
[2017-10-28] MEDS: NICOTINE POLACRILEX 2 MG GUM BUC PRN (21:30)
[2017-10-29] MEDS: NICOTINE POLACRILEX 2 MG GUM BUC PRN (06:25)
[2017-10-29] MEDS: amLODIPine BESYLATE 10 MG TABLET (FP) PO SCH (09:41)
[2017-10-29] MEDS: PRENATAL VITAMINS W/ FOLIC ACID TABLET (FP) PO SCH (09:41)
[2017-10-29] MEDS: NAPROXEN 375 MG TABLET (FP) PO SCH ×2 (09:41→21:17)
[2017-10-29] MEDS: LIDOCAINE 5% TOPICAL PATCH TP SCH (09:42)
[2017-10-29] MEDS: NICOTINE 14 MG/24 HOURS TOPICAL PATCH TD SCH (09:42)
[2017-10-29] MEDS: THIAMINE HCL 100 MG TABLET (FP) PO SCH (21:15)
[2017-10-29] MEDS: SUVOREXANT 10 MG TABLET PO PRN (21:15)
[2017-10-29] MEDS: hydrOXYzine PAMOATE 50 MG CAPSULE (FP) PO PRN (21:16)
[2017-10-29] MEDS: LIDOCAINE PATCH REMOVAL MC SCH (21:55)
[2017-10-30] MEDS: ACETAMINOPHEN 325 MG TABLET (FP) PO PRN (06:23)
[2017-10-30] MEDS: NICOTINE POLACRILEX 2 MG GUM BUC PRN ×2 (06:24→21:28)
[2017-10-30] MEDS: hydrOXYzine PAMOATE 50 MG CAPSULE (FP) PO PRN ×2 (10:04→21:27)
[2017-10-30] MEDS: amLODIPine BESYLATE 10 MG TABLET (FP) PO SCH (10:05)
[2017-10-30] MEDS: PRENATAL VITAMINS W/ FOLIC ACID TABLET (FP) PO SCH (10:05)
[2017-10-30] MEDS: NAPROXEN 375 MG TABLET (FP) PO SCH ×2 (10:05→21:29)
[2017-10-30] MEDS: NICOTINE 14 MG/24 HOURS TOPICAL PATCH TD SCH (10:05)
[2017-10-30] MEDS: LIDOCAINE 5% TOPICAL PATCH TP SCH (10:07)
[2017-10-30] MEDS: THIAMINE HCL 100 MG TABLET (FP) PO SCH (21:27)
[2017-10-30] MEDS: SUVOREXANT 10 MG TABLET PO PRN (21:27)
[2017-10-30] MEDS: LIDOCAINE PATCH REMOVAL MC SCH (22:10)
[2017-10-31] MEDS: ACETAMINOPHEN 325 MG TABLET (FP) PO PRN (06:14)
[2017-10-31] MEDS: hydrOXYzine PAMOATE 50 MG CAPSULE (FP) PO PRN ×2 (06:56→21:35)
[2017-10-31] MEDS: PRENATAL VITAMINS W/ FOLIC ACID TABLET (FP) PO SCH (09:55)
[2017-10-31] MEDS: NAPROXEN 375 MG TABLET (FP) PO SCH ×2 (09:56→22:01)
[2017-10-31] MEDS: NICOTINE 14 MG/24 HOURS TOPICAL PATCH TD SCH (09:57)
[2017-10-31] MEDS: LIDOCAINE 5% TOPICAL PATCH TP SCH (09:57)
[2017-10-31] MEDS: amLODIPine BESYLATE 10 MG TABLET (FP) PO SCH (10:24)
[2017-10-31] MEDS ORDERED: PT OWN MED DRAWER 7, Y5N ONE (19:50)
[2017-10-31] MEDS: SUVOREXANT 10 MG TABLET PO PRN (21:35)
[2017-10-31] MEDS: THIAMINE HCL 100 MG TABLET (FP) PO SCH (21:35)
[2017-10-31] MEDS: NICOTINE POLACRILEX 2 MG GUM BUC PRN (21:36)
[2017-10-31] MEDS: LIDOCAINE PATCH REMOVAL MC SCH (22:01)
[2017-11-01] MEDS: PRENATAL VITAMINS W/ FOLIC ACID TABLET (FP) PO SCH (09:49)
[2017-11-01] MEDS: NICOTINE 14 MG/24 HOURS TOPICAL PATCH TD SCH (09:49)
[2017-11-01] MEDS: NAPROXEN 375 MG TABLET (FP) PO SCH ×2 (09:51→21:25)
[2017-11-01] MEDS: LIDOCAINE 5% TOPICAL PATCH TP SCH (09:52)
[2017-11-01] MEDS ORDERED: PT OWN MED DRAWER 7, Y5N ONE ×2 (09:52→19:28)
[2017-11-01] MEDS: hydrOXYzine PAMOATE 50 MG CAPSULE (FP) PO PRN ×2 (09:53→21:24)
[2017-11-01] MEDS: amLODIPine BESYLATE 10 MG TABLET (FP) PO SCH (09:53)
[2017-11-01] MEDS: THIAMINE HCL 100 MG TABLET (FP) PO SCH (21:24)
[2017-11-01] MEDS: SUVOREXANT 10 MG TABLET PO PRN (21:24)
[2017-11-01] MEDS: LIDOCAINE PATCH REMOVAL MC SCH (21:25)
--- NOTE | 2017-11-02 06:55 | PN ---
Psychiatric Progress Note Vital Signs: Vital Signs Period Temp Pulse Resp BP Sys/Caballero Pulse Ox Last 24 Hr 98.2 F 70-99 18-20 150-152/90-92 Date of Session: 11/02/17 Chief Complaint:: Insomnia HPI: Patient addressing Opoid Dependence comorbid with Nicotine Dependence, Substance-Induced Anxiety Disorder and Substance-Induced Sleep Disorder ROS: HTN, Hep C, Chronic pain, Rheumatoid Arthritis Current Medications: Active Medications Generic Name Dose Route Start Last Admin Trade Name Freq PRN Reason Stop Dose Admin Acetaminophen 650 mg 10/26/17 11:09 10/31/17 06:14 Tylenol - PO 650 mg Q4H PRN Administration FEVER Al Hydroxide/Mg Hydroxide 30 ml 10/26/17 11:09 Mylanta Oral Suspension - PO Q6H PRN DYSPEPSIA Amlodipine Besylate 10 mg 10/27/17 10:00 11/01/17 09:53 Norvasc - PO 10 mg DAILY MINH Administration Eucalyptus/Menthol/Phenol/Sorbitol 1 each 10/26/17 11:09 Cepastat Lozenge - MM Q4H PRN SORE THROAT Guaifenesin 10 ml 10/26/17 11:09 Robitussin Dm - PO Q6H PRN COUGH Hydroxyzine Pamoate 50 mg 10/27/17 10:36 11/01/17 21:24 Vistaril - PO 50 mg Q4H PRN Administration ANXIETY Lidocaine 1 patch 10/27/17 16:45 11/01/17 09:52 Lidoderm Patch - TP 1 patch DAILY MINH Administration Loperamide HCl 4 mg 10/26/17 11:09 Imodium - PO Q6H PRN DIARRHEA Magnesium Citrate 300 ml 10/26/17 11:09 Citroma - PO Q48H PRN CONSTIPATION Magnesium Hydroxide 30 ml 10/26/17 11:09 Milk Of Magnesia - PO DAILY PRN CONSTIPATION Miscellaneous 1 each 10/27/17 22:00 11/01/17 21:25 Lidoderm Patch Removal MC 1 each DAILY@2200 MINH Administration Naproxen 375 mg 10/27/17 22:00 11/01/17 21:25 Naprosyn - PO 375 mg BID MINH Administration Nicotine 14 mg 10/27/17 10:00 11/01/17 09:49 Nicoderm Patch - TD 14 mg DAILY MINH Administration Nicotine Polacrilex 2 mg 10/26/17 11:09 10/31/17 21:36 Nicorette Gum - BUC 2 mg Q2H PRN Administration NICOTINE REPLACEMENT RX Multivit/Folic Acid/Iron 1 tab 10/27/17 10:00 11/01/17 09:49 Vitamins (Sjr) - PO 1 tab DAILY MINH Administration Pseudoephedrine/Triprolidine 1 combo 10/26/17 11:09 Actifed - PO TID PRN NASAL CONGESTION Thiamine HCl 100 mg 10/26/17 22:00 11/01/17 21:24 Vitamin B1 - PO 100 mg HS MINH Administration Tizanidine HCl 2 mg 10/27/17 16:02 Tizanidine Hcl PO Q8H PRN MUSCLE SPASMS Medication(s) Change(s): Start Trazadone 100 mg po HS Current Side Effect: No Lab tests ordered: Yes Lab tests reviewed: Yes Provider note:: Patient reports experiencing difficulty to sleep. Told internal communications writer that he has been sleeping poorly despite taking Belsomra 10 mg po HS. Requests to be ordered Trazadone to which he claims to respond favorably in the past Total face to face time:: 15 Mental Status Exam - Mental Status Exam Alert and Oriented to: Time, Place, Person Cognitive Function: Fair Patient Appearance: Well Groomed Mood: Hopeful, Euthymic Affect: Appropriate Patient Behavior: Cooperative Speech Pattern: Clear Voice Loudness: Normal, Limited Variation Thought Process: Goal Oriented Thought Disorder: Not Present Hallucinations: Denies Suicidal Ideation: Denies Homicidal Ideation: Denies Insight/Judgement: Fair Sleep: Poorly Appetite: Good Muscle strength/Tone: Normal Gait/Station: Normal Psychiatric Treatment Plan - Problem List (1) Opioid dependence Current Visit: Yes (2) Nicotine dependence Current Visit: No Qualifiers: Nicotine product type: cigarettes Substance use status: uncomplicated Qualified Code(s): F17.210 - Nicotine dependence, cigarettes, uncomplicated (3) Substance-induced anxiety disorder Current Visit: Yes (4) Substance-induced sleep disorder Current Visit: Yes (5) Chronic pain Current Visit: Yes Qualifiers: Chronic pain type: other chronic pain Qualified Code(s): G89.29 - Other chronic pain (6) HTN (hypertension) Current Visit: Yes Qualifiers: Hypertension type: essential hypertension Qualified Code(s): I10 - Essential (primary) hypertension (7) Hepatitis C Current Visit: No Qualifiers: Viral hepatitis chronicity: unspecified Hepatic coma status: without hepatic coma Qualified Code(s): B19.20 - Unspecified viral hepatitis C without hepatic coma (8) Rheumatoid arthritis Current Visit: Yes Qualifiers: Rheumatoid arthritis location: multiple sites Rheumatoid factor presence: unspecified presence Qualified Code(s): M06.9 - Rheumatoid arthritis, unspecified Initial treatment plan: 1) Start Trazadone 100 mg po HS for insomnia. 2) Monitor progress
[2017-11-02] MEDS ORDERED: PT OWN MED DRAWER 7, Y5N ONE ×2 (08:41→19:27)
[2017-11-02] MEDS: NAPROXEN 375 MG TABLET (FP) PO SCH ×2 (09:59→21:24)
[2017-11-02] MEDS: PRENATAL VITAMINS W/ FOLIC ACID TABLET (FP) PO SCH (09:59)
[2017-11-02] MEDS: amLODIPine BESYLATE 10 MG TABLET (FP) PO SCH (09:59)
[2017-11-02] MEDS: NICOTINE 14 MG/24 HOURS TOPICAL PATCH TD SCH (10:00)
[2017-11-02] MEDS: LIDOCAINE 5% TOPICAL PATCH TP SCH (10:00)
[2017-11-02] MEDS: hydrOXYzine PAMOATE 50 MG CAPSULE (FP) PO PRN (21:22)
[2017-11-02] MEDS: THIAMINE HCL 100 MG TABLET (FP) PO SCH (21:22)
[2017-11-02] MEDS: SUVOREXANT 10 MG TABLET PO PRN (21:23)
[2017-11-02] MEDS: LIDOCAINE PATCH REMOVAL MC SCH (21:23)
[2017-11-02] MEDS: traZODone HCL 100 MG TABLET (FP) PO SCH (22:03)
[2017-11-03] MEDS ORDERED: PT OWN MED DRAWER 7, Y5N ONE ×2 (09:03→20:28)
[2017-11-03] MEDS: NAPROXEN 375 MG TABLET (FP) PO SCH ×2 (09:31→21:18)
[2017-11-03] MEDS: LIDOCAINE 5% TOPICAL PATCH TP SCH (09:32)
[2017-11-03] MEDS: NICOTINE 14 MG/24 HOURS TOPICAL PATCH TD SCH (09:32)
[2017-11-03] MEDS: PRENATAL VITAMINS W/ FOLIC ACID TABLET (FP) PO SCH (09:32)
[2017-11-03] MEDS: amLODIPine BESYLATE 10 MG TABLET (FP) PO SCH (09:32)
[2017-11-03] MEDS: traZODone HCL 100 MG TABLET (FP) PO SCH (21:18)
[2017-11-03] MEDS: THIAMINE HCL 100 MG TABLET (FP) PO SCH (21:18)
[2017-11-03] MEDS: LIDOCAINE PATCH REMOVAL MC SCH (21:19)
[2017-11-04] MEDS: NAPROXEN 375 MG TABLET (FP) PO SCH ×2 (10:02→21:33)
[2017-11-04] MEDS: PRENATAL VITAMINS W/ FOLIC ACID TABLET (FP) PO SCH (10:02)
[2017-11-04] MEDS: NICOTINE 14 MG/24 HOURS TOPICAL PATCH TD SCH (10:02)
[2017-11-04] MEDS: amLODIPine BESYLATE 10 MG TABLET (FP) PO SCH (10:02)
[2017-11-04] MEDS: LIDOCAINE 5% TOPICAL PATCH TP SCH (10:03)
[2017-11-04] MEDS ORDERED: PT OWN MED DRAWER 7, Y5N ONE (20:14)
[2017-11-04] MEDS: SUVOREXANT 10 MG TABLET PO PRN (21:31)
[2017-11-04] MEDS: THIAMINE HCL 100 MG TABLET (FP) PO SCH (21:31)
[2017-11-04] MEDS: traZODone HCL 100 MG TABLET (FP) PO SCH (21:31)
[2017-11-04] MEDS: hydrOXYzine PAMOATE 50 MG CAPSULE (FP) PO PRN (21:31)
[2017-11-04] MEDS: LIDOCAINE PATCH REMOVAL MC SCH (21:31)
[2017-11-04] MEDS: NICOTINE POLACRILEX 2 MG GUM BUC PRN (21:33)
[2017-11-05] MEDS: ACETAMINOPHEN 325 MG TABLET (FP) PO PRN (06:31)
[2017-11-05] MEDS ORDERED: PT OWN MED DRAWER 7, Y5N ONE ×3 (06:31→20:02)
[2017-11-05] MEDS: TIZANIDINE HCL 2 MG TABLET PO PRN (06:32)
[2017-11-05] MEDS: NICOTINE 14 MG/24 HOURS TOPICAL PATCH TD SCH (09:46)
[2017-11-05] MEDS: NAPROXEN 375 MG TABLET (FP) PO SCH ×2 (09:46→21:45)
[2017-11-05] MEDS: amLODIPine BESYLATE 10 MG TABLET (FP) PO SCH (09:46)
[2017-11-05] MEDS: PRENATAL VITAMINS W/ FOLIC ACID TABLET (FP) PO SCH (09:46)
[2017-11-05] MEDS: LIDOCAINE 5% TOPICAL PATCH TP SCH (09:49)
[2017-11-05] MEDS: THIAMINE HCL 100 MG TABLET (FP) PO SCH (21:44)
[2017-11-05] MEDS: traZODone HCL 100 MG TABLET (FP) PO SCH (21:45)
[2017-11-05] MEDS: LIDOCAINE PATCH REMOVAL MC SCH (21:45)
[2017-11-05] MEDS: SUVOREXANT 10 MG TABLET PO PRN (21:47)
[2017-11-06] MEDS ORDERED: PT OWN MED DRAWER 7, Y5N ONE ×3 (06:22→19:25)
[2017-11-06] MEDS: TIZANIDINE HCL 2 MG TABLET PO PRN (06:22)
[2017-11-06] MEDS: ACETAMINOPHEN 325 MG TABLET (FP) PO PRN (06:22)
[2017-11-06] MEDS ORDERED: SUVOREXANT 10 MG TABLET PO PRN (06:25)
[2017-11-06] MEDS: amLODIPine BESYLATE 10 MG TABLET (FP) PO SCH (09:37)
[2017-11-06] MEDS: LIDOCAINE 5% TOPICAL PATCH TP SCH (09:37)
[2017-11-06] MEDS: NAPROXEN 375 MG TABLET (FP) PO SCH ×2 (09:37→21:17)
[2017-11-06] MEDS: PRENATAL VITAMINS W/ FOLIC ACID TABLET (FP) PO SCH (09:37)
[2017-11-06] MEDS: NICOTINE 14 MG/24 HOURS TOPICAL PATCH TD SCH (09:38)
[2017-11-06] MEDS: THIAMINE HCL 100 MG TABLET (FP) PO SCH (21:17)
[2017-11-06] MEDS: LIDOCAINE PATCH REMOVAL MC SCH (21:17)
[2017-11-06] MEDS: traZODone HCL 100 MG TABLET (FP) PO SCH (21:17)
[2017-11-06] MEDS: NICOTINE POLACRILEX 2 MG GUM BUC PRN (21:19)
[2017-11-07] MEDS: ACETAMINOPHEN 325 MG TABLET (FP) PO PRN (06:50)
[2017-11-07] MEDS: NAPROXEN 375 MG TABLET (FP) PO SCH ×2 (10:03→21:12)
[2017-11-07] MEDS: amLODIPine BESYLATE 10 MG TABLET (FP) PO SCH (10:04)
[2017-11-07] MEDS: PRENATAL VITAMINS W/ FOLIC ACID TABLET (FP) PO SCH (10:04)
[2017-11-07] MEDS: NICOTINE 14 MG/24 HOURS TOPICAL PATCH TD SCH (10:04)
[2017-11-07] MEDS: LIDOCAINE 5% TOPICAL PATCH TP SCH (10:05)
[2017-11-07] MEDS ORDERED: PT OWN MED DRAWER 7, Y5N ONE (20:21)
[2017-11-07] MEDS: hydrOXYzine PAMOATE 50 MG CAPSULE (FP) PO PRN (21:11)
[2017-11-07] MEDS: THIAMINE HCL 100 MG TABLET (FP) PO SCH (21:11)
[2017-11-07] MEDS: traZODone HCL 100 MG TABLET (FP) PO SCH (21:12)
[2017-11-07] MEDS: LIDOCAINE PATCH REMOVAL MC SCH (21:12)
[2017-11-08] MEDS: ACETAMINOPHEN 325 MG TABLET (FP) PO PRN ×2 (06:22→13:34)
--- NOTE | 2017-11-08 07:09 | PN ---
Psychiatric Progress Note Vital Signs: Vital Signs Period Temp Pulse Resp BP Sys/Caballero Pulse Ox Last 24 Hr 97.9 F 82-84 18-20 112-130/71-86 Current Medications: Active Medications Generic Name Dose Route Start Last Admin Trade Name Freq PRN Reason Stop Dose Admin Acetaminophen 650 mg 10/26/17 11:09 11/08/17 06:22 Tylenol - PO 650 mg Q4H PRN Administration FEVER Al Hydroxide/Mg Hydroxide 30 ml 10/26/17 11:09 Mylanta Oral Suspension - PO Q6H PRN DYSPEPSIA Amlodipine Besylate 10 mg 10/27/17 10:00 11/07/17 10:04 Norvasc - PO 10 mg DAILY MINH Administration Eucalyptus/Menthol/Phenol/Sorbitol 1 each 10/26/17 11:09 Cepastat Lozenge - MM Q4H PRN SORE THROAT Guaifenesin 10 ml 10/26/17 11:09 Robitussin Dm - PO Q6H PRN COUGH Hydroxyzine Pamoate 50 mg 10/27/17 10:36 11/07/17 21:11 Vistaril - PO 50 mg Q4H PRN Administration ANXIETY Lidocaine 1 patch 10/27/17 16:45 11/07/17 10:05 Lidoderm Patch - TP 1 patch DAILY MINH Administration Loperamide HCl 4 mg 10/26/17 11:09 Imodium - PO Q6H PRN DIARRHEA Magnesium Citrate 300 ml 10/26/17 11:09 Citroma - PO Q48H PRN CONSTIPATION Magnesium Hydroxide 30 ml 10/26/17 11:09 Milk Of Magnesia - PO DAILY PRN CONSTIPATION Miscellaneous 1 each 10/27/17 22:00 11/07/17 21:12 Lidoderm Patch Removal MC 1 each DAILY@2200 MINH Administration Naproxen 375 mg 10/27/17 22:00 11/07/17 21:12 Naprosyn - PO 375 mg BID MINH Administration Nicotine 14 mg 10/27/17 10:00 11/07/17 10:04 Nicoderm Patch - TD 14 mg DAILY MINH Administration Nicotine Polacrilex 2 mg 10/26/17 11:09 11/06/17 21:19 Nicorette Gum - BUC 2 mg Q2H PRN Administration NICOTINE REPLACEMENT RX Multivit/Folic Acid/Iron 1 tab 10/27/17 10:00 11/07/17 10:04 Vitamins (Sjr) - PO 1 tab DAILY MINH Administration Pseudoephedrine/Triprolidine 1 combo 10/26/17 11:09 Actifed - PO TID PRN NASAL CONGESTION Thiamine HCl 100 mg 10/26/17 22:00 11/07/17 21:11 Vitamin B1 - PO 100 mg HS MINH Administration Tizanidine HCl 2 mg 10/27/17 16:02 11/06/17 06:22 Tizanidine Hcl PO 2 mg Q8H PRN Administration MUSCLE SPASMS Trazodone HCl 100 mg 11/02/17 22:00 11/07/17 21:12 Desyrel - PO 100 mg HS MINH Administration Psychiatric Treatment Plan - Problem List (1) Opioid dependence Current Visit: Yes (2) Nicotine dependence Current Visit: No Qualifiers: Nicotine product type: cigarettes Substance use status: uncomplicated Qualified Code(s): F17.210 - Nicotine dependence, cigarettes, uncomplicated (3) Substance-induced anxiety disorder Current Visit: Yes (4) Substance-induced sleep disorder Current Visit: Yes (5) Chronic pain Current Visit: Yes Qualifiers: Chronic pain type: other chronic pain Qualified Code(s): G89.29 - Other chronic pain (6) HTN (hypertension) Current Visit: Yes Qualifiers: Hypertension type: essential hypertension Qualified Code(s): I10 - Essential (primary) hypertension (7) Hepatitis C Current Visit: No Qualifiers: Viral hepatitis chronicity: unspecified Hepatic coma status: without hepatic coma Qualified Code(s): B19.20 - Unspecified viral hepatitis C without hepatic coma (8) Rheumatoid arthritis Current Visit: Yes Qualifiers: Rheumatoid arthritis location: multiple sites Rheumatoid factor presence: unspecified presence Qualified Code(s): M06.9 - Rheumatoid arthritis, unspecified
[2017-11-08] MEDS: amLODIPine BESYLATE 10 MG TABLET (FP) PO SCH (09:36)
[2017-11-08] MEDS: PRENATAL VITAMINS W/ FOLIC ACID TABLET (FP) PO SCH (09:36)
[2017-11-08] MEDS: NAPROXEN 375 MG TABLET (FP) PO SCH ×2 (09:36→21:28)
[2017-11-08] MEDS: NICOTINE 14 MG/24 HOURS TOPICAL PATCH TD SCH (09:36)
[2017-11-08] MEDS: LIDOCAINE 5% TOPICAL PATCH TP SCH (09:37)
[2017-11-08] MEDS ORDERED: SUVOREXANT 10 MG TABLET PO PRN (14:43)
[2017-11-08] MEDS: traZODone HCL 100 MG TABLET (FP) PO SCH (21:26)
[2017-11-08] MEDS: hydrOXYzine PAMOATE 50 MG CAPSULE (FP) PO PRN (21:26)
[2017-11-08] MEDS: THIAMINE HCL 100 MG TABLET (FP) PO SCH (21:26)
[2017-11-08] MEDS: LIDOCAINE PATCH REMOVAL MC SCH (21:27)
[2017-11-08] MEDS: NICOTINE POLACRILEX 2 MG GUM BUC PRN (21:27)
[2017-11-09] MEDS: NAPROXEN 375 MG TABLET (FP) PO SCH ×2 (09:49→21:29)
[2017-11-09] MEDS: NICOTINE 14 MG/24 HOURS TOPICAL PATCH TD SCH (09:49)
[2017-11-09] MEDS: amLODIPine BESYLATE 10 MG TABLET (FP) PO SCH (09:49)
[2017-11-09] MEDS: LIDOCAINE 5% TOPICAL PATCH TP SCH (09:49)
[2017-11-09] MEDS: PRENATAL VITAMINS W/ FOLIC ACID TABLET (FP) PO SCH (09:49)
[2017-11-09] MEDS: NICOTINE POLACRILEX 2 MG GUM BUC PRN (09:51)
[2017-11-09] MEDS: THIAMINE HCL 100 MG TABLET (FP) PO SCH (21:28)
[2017-11-09] MEDS: hydrOXYzine PAMOATE 50 MG CAPSULE (FP) PO PRN (21:28)
[2017-11-09] MEDS: traZODone HCL 100 MG TABLET (FP) PO SCH (21:28)
[2017-11-09] MEDS: LIDOCAINE PATCH REMOVAL MC SCH (21:29)
[2017-11-10 06:58] VITALS: TEMP 98.8
--- NOTE | 2017-11-10 09:20 | PN ---
Psychiatric Progress Note Vital Signs: Vital Signs Period Temp Pulse Resp BP Sys/Caballero Pulse Ox Last 24 Hr 98.8 F 73-79 18-20 125-148/74-95 Date of Session: 11/10/17 Chief Complaint:: Discharge Note HPI: Patient addressing Opoid Dependence comorbid with Nicotine Dependence, Substance-Induced Anxiety Disorder and Substance-Induced Sleep Disorder ROS: . HTN, Hep C, Chronic pain, Rheumatoid Arthritis Current Medications: Active Medications Generic Name Dose Route Start Last Admin Trade Name Freq PRN Reason Stop Dose Admin Acetaminophen 650 mg 10/26/17 11:09 11/08/17 13:34 Tylenol - PO 650 mg Q4H PRN Administration FEVER Al Hydroxide/Mg Hydroxide 30 ml 10/26/17 11:09 Mylanta Oral Suspension - PO Q6H PRN DYSPEPSIA Amlodipine Besylate 10 mg 10/27/17 10:00 11/09/17 09:49 Norvasc - PO 10 mg DAILY MINH Administration Eucalyptus/Menthol/Phenol/Sorbitol 1 each 10/26/17 11:09 Cepastat Lozenge - MM Q4H PRN SORE THROAT Guaifenesin 10 ml 10/26/17 11:09 Robitussin Dm - PO Q6H PRN COUGH Hydroxyzine Pamoate 50 mg 10/27/17 10:36 11/09/17 21:28 Vistaril - PO 50 mg Q4H PRN Administration ANXIETY Lidocaine 1 patch 10/27/17 16:45 11/09/17 09:49 Lidoderm Patch - TP 1 patch DAILY MINH Administration Loperamide HCl 4 mg 10/26/17 11:09 Imodium - PO Q6H PRN DIARRHEA Magnesium Citrate 300 ml 10/26/17 11:09 Citroma - PO Q48H PRN CONSTIPATION Magnesium Hydroxide 30 ml 10/26/17 11:09 Milk Of Magnesia - PO DAILY PRN CONSTIPATION Miscellaneous 1 each 10/27/17 22:00 11/09/17 21:29 Lidoderm Patch Removal MC 1 each DAILY@2200 MINH Administration Naproxen 375 mg 10/27/17 22:00 11/09/17 21:29 Naprosyn - PO 375 mg BID MINH Administration Nicotine 14 mg 10/27/17 10:00 11/09/17 09:49 Nicoderm Patch - TD 14 mg DAILY MINH Administration Nicotine Polacrilex 2 mg 10/26/17 11:09 11/09/17 09:51 Nicorette Gum - BUC 2 mg Q2H PRN Administration NICOTINE REPLACEMENT RX Multivit/Folic Acid/Iron 1 tab 10/27/17 10:00 11/09/17 09:49 Vitamins (Sjr) - PO 1 tab DAILY MINH Administration Pseudoephedrine/Triprolidine 1 combo 10/26/17 11:09 Actifed - PO TID PRN NASAL CONGESTION Suvorexant 10 mg 11/08/17 14:43 11/09/17 21:28 Belsomra PO 10 mg HS PRN Administration INSOMNIA Thiamine HCl 100 mg 10/26/17 22:00 11/09/17 21:28 Vitamin B1 - PO 100 mg HS MINH Administration Tizanidine HCl 2 mg 10/27/17 16:02 11/06/17 06:22 Tizanidine Hcl PO 2 mg Q8H PRN Administration MUSCLE SPASMS Trazodone HCl 100 mg 11/02/17 22:00 11/09/17 21:28 Desyrel - PO 100 mg HS MINH Administration Current Side Effect: No Lab tests ordered: Yes Lab tests reviewed: Yes Provider note:: Patient has completed this program today. He has met his treatment goals and will continue to address his issues in outpatient treatment at [facility]. Told job specification writer that from his participation in this program, he has learned to establish a sober support network to maintain abstinence. He responded well to Trazadone 100 mg po HS and Belsomra 10 mg po HS prn for insomnia. Script for 30 days supply of Trazadone will be electronically transmitted to [facility] at [address] [place] [address]. He is stable for discharge today Total face to face time:: 35 Mental Status Exam - Mental Status Exam Alert and Oriented to: Time, Place, Person Cognitive Function: Fair Patient Appearance: Well Groomed Mood: Hopeful, Euthymic Affect: Appropriate Patient Behavior: Cooperative Speech Pattern: Clear Voice Loudness: Normal, Limited Variation Thought Process: Goal Oriented Thought Disorder: Not Present Hallucinations: Denies Suicidal Ideation: Denies Homicidal Ideation: Denies Insight/Judgement: Fair Sleep: Fair Appetite: Good Muscle strength/Tone: Normal Gait/Station: Normal Psychiatric Treatment Plan - Problem List (1) Opioid dependence Current Visit: Yes (2) Nicotine dependence Current Visit: No Qualifiers: Nicotine product type: cigarettes Substance use status: uncomplicated Qualified Code(s): F17.210 - Nicotine dependence, cigarettes, uncomplicated (3) Substance-induced anxiety disorder Current Visit: Yes (4) Substance-induced sleep disorder Current Visit: Yes (5) Chronic pain Current Visit: Yes Qualifiers: Chronic pain type: other chronic pain Qualified Code(s): G89.29 - Other chronic pain (6) HTN (hypertension) Current Visit: Yes Qualifiers: Hypertension type: essential hypertension Qualified Code(s): I10 - Essential (primary) hypertension (7) Hepatitis C Current Visit: No Qualifiers: Viral hepatitis chronicity: unspecified Hepatic coma status: without hepatic coma Qualified Code(s): B19.20 - Unspecified viral hepatitis C without hepatic coma (8) Rheumatoid arthritis Current Visit: Yes Qualifiers: Rheumatoid arthritis location: multiple sites Rheumatoid factor presence: unspecified presence Qualified Code(s): M06.9 - Rheumatoid arthritis, unspecified Initial treatment plan: Patient is discharged today and [facility]
[2017-11-10] MEDS: PRENATAL VITAMINS W/ FOLIC ACID TABLET (FP) PO SCH (09:58)
[2017-11-10] MEDS: LIDOCAINE 5% TOPICAL PATCH TP SCH (09:58)
[2017-11-10] MEDS: NICOTINE 14 MG/24 HOURS TOPICAL PATCH TD SCH (09:58)
[2017-11-10] MEDS: amLODIPine BESYLATE 10 MG TABLET (FP) PO SCH (09:58)
[2017-11-10] MEDS: NAPROXEN 375 MG TABLET (FP) PO SCH (09:59)
[2017-11-10 10:12] VITALS: BP 148/97; PULSE 83
== END 2017-11-10 10:45 | disposition home or self-care (01) | DRG 772 ==
LOC: YASAS 12:32 → Y3W 12:34
PROVIDERS: ADMIT Psychiatry & Neurology Psychiatry; ATTEND Psychiatry & Neurology Psychiatry
PROC: HZ42ZZZ Group Counseling for Substance Abuse Treatment, Cognitive-Behavioral (ICD-10-PCS; principal; 2017-10-26)
DX: F11.20 Opioid dependence, uncomplicated (principal); F17.210 Nicotine dependence, cigarettes, uncomplicated; F19.280 Other psychoactive substance dependence with psychoactive substance-induced anxiety disorder; F19.282 Other psychoactive substance dependence with psychoactive substance-induced sleep disorder; I10 Essential (primary) hypertension; B18.2 Chronic viral hepatitis C; G89.29 Other chronic pain; M06.9 Rheumatoid arthritis, unspecified; R45.89 Other symptoms and signs involving emotional state; R26.89 Other abnormalities of gait and mobility; Z99.89 Dependence on other enabling machines and devices; Z59.0 Homelessness
CPT/HCPCS: 82962; 90732; G0009